=== PATIENT | male | born 1950 | race Caucasian/White ===

== ENCOUNTER 2017-06-09 14:50 | Observation (INO) ==
--- NOTE | 2017-06-09 15:11 | Emergency Department Report ---
Chest Pain HPI - General Chief Complaint: Chest Pain Stated Complaint: cp Time Seen by Provider: 06/09/17 15:11 Source: patient - History of Present Illness HPI narrative: 66 YO M presents to ED with report of sternal chest pain that radiated to his left arm that started approx. 30 minutes ago. Patient says he was at his 's shop sitting when chest pain started. EMS was called and gave patient four 81mg ASA, which took his pain from 12/17 to 05/19. Pain was crushing and constant. Says that pain is different than his usual angina. Admits that he was diaphoretic and SOA with chest pain today. Denies fever, chills, sinus drainage, cough, nausea, vomiting, abdominal pain, headache or ataxia. Has had past IL and has seen Dr. Hopper. - Related Data Home Medications Medication Instructions Recorded Confirmed Aspirin [ASA] 325 mg PO DAILY 06/09/17 06/09/17 FLUoxetine [Prozac] 20 mg PO DAILY 06/09/17 06/09/17 Fluticasone/Salmeterol 250/50 1 puff INH BID PRN 06/09/17 06/09/17 [Advair 250-50 Diskus] Lansoprazole 30 mg PO DAILY 06/09/17 06/09/17 Lisinopril [Zestril] 20 mg PO DAILY 06/09/17 06/09/17 Previous Rx's Medication Instructions Recorded Albuterol Neb (0.5%) [Proventil 1 vial AEROSOL Q4HR #60 vial 02/09/16 Neb (0.5%)] Allergies Allergy/AdvReac Type Severity Reaction Status Date / Time No Known Allergies Allergy Unknown Verified 06/09/17 18:14 Review of Systems All systems: reviewed and negative except as stated Cardiovascular: Reports: as per HPI, chest pain Respiratory: Reports: as per HPI, dyspnea PFSH Patient Stated Medical History Cerebrovascular Accident Yes: 2015; RIGHT SIDED FACIAL DROOP Angina Yes Cardiac Arrhythmia Yes: AFIB HX Congestive Heart Failure No Hypertension Yes Myocardial Infarction Yes Peripheral Vascular Disease No Asthma Yes Diabetes Mellitus Type 1 No Diabetes Mellitus Type 2 No Gastroesophageal Reflux Yes Disease Hx Kidney Stones Yes Osteoarthritis Yes Depression Yes Recreational Drug Use No Surgical History: Eye. Nose. Colonoscopy - Social History Household members: spouse Current occupational status: employed Physical Exam - Limitations Limitations: no limitations - General General appearance: alert, in no apparent distress - Normal Exams: Head:: Normocephalic without trauma Eyes:: No scleral icterus, irritation ENMT:: No facial trauma, nasal exudates Neck:: Full range of motion Chest/Respirations:: Clear all cooney, with good airflow, and symmetry bilaterally Cardiovascular:: Regular rate and rhythm, without murmur or gallop Abdomen:: Bowel sounds positive, soft, non-tender, non-distended, no hepatosplenomegaly Musculoskeletal:: No tenderness, or deformity noted, good range of motion, all extremities Neurological:: Patient is alert, and oriented, cranial nerves, motor/sensory/ cerebellar, exams w/o gross deficits, to observation - Eye Eye exam: Present: EOMI - ENT ENT exam: Present: mucous membranes moist - Neck Neck exam: Present: trachea midline - Chest Chest inspection: Present: symmetric chest wall rise - Skin Skin exam: Present: warm, dry Course - Consultations Consultation #1: I discussed patient's HPI, PMH, labs, VS, exam findings, CXR, EKG and treatment in the ED with Dr. Cochran. Dr. Cochran will admit observation, surgical. Vital Signs Temperature 98.1 F 06/09/17 14:50 Pulse Rate 76 06/09/17 14:50 Respiratory Rate 16 06/09/17 14:50 Blood Pressure 154/80 H 06/09/17 14:50 Pulse Oximetry 95 06/09/17 14:50 Temperature 97.6 F 06/09/17 17:42 Pulse Rate 64 06/09/17 17:42 Respiratory Rate 16 06/09/17 18:50 Blood Pressure 136/71 06/09/17 17:42 Pulse Oximetry 99 06/09/17 18:50 Chest Pain - [facility] Narrative Medical decision making narrative: Patient reports no pain after 1 nitro. Labs are unremarkable Troponin < 0.012 D-dimer <150 EKG does not indicate any acute findings CXR no acute cardiopulmonary findings I discussed labs, EKG and CXR results with patient and need for admission to r/ o IL. Patient agrees to observation admission. - Differential Diagnosis Likely: stable angina, unstable angina pectoris, atypical chest pain, chest pain (IL) - Medical Records Data Attestation: I reviewed the patient's medical records. - Lab Data Attestation: I reviewed the patient's lab results. Result diagrams: 06/09/17 15:00 06/09/17 15:00 Lab Results 06/09/17 06/09/17 06/09/17 Range/Units 15:00 15:00 15:00 WBC 8.9 (4.5-11.0) T/MM3 RBC 5.07 (4.50-5.90) M/MM3 Hgb 14.8 (13.5-17.5) GM/DL Hct 44.0 (41-53) % MCV 86.8 (80-100) UM3 MCH 29.2 (26-34) UUG MCHC 33.6 (31-37) GM/DL RDW Std Deviation 40.9 (36.9-50.2) FL Plt Count 253 (130-400) T/MM3 MPV 11.7 (9.4-12.4) UM3 Immature Gran % (Auto) 0.3 (0.0-0.5) % Neut % (Auto) 61.6 (33-66) % Lymph % (Auto) 26.5 (23-45) % Russell % (Auto) 8.4 (0-9.0) % Eos % (Auto) 2.9 (0-4) % Baso % (Auto) 0.3 (0-2) % Neut # (Auto) 5.5 (1.8-7.7) T/MM3 Lymph # (Auto) 2.4 (1-4.8) T/MM3 Russell # (Auto) 0.7 (0-0.8) T/MM3 Eos # (Auto) 0.3 (0-0.5) T/MM3 Baso # (Auto) 0.0 (0-0.2) T/MM3 Abs Immat Gran (auto) 0.03 (0.00-0.03) T/MM3 D-Dimer < 150 (0-230) NG/ML Turbidity < 20 (0-20) Sodium 145 H (134-144) MEQ/L Potassium 4.1 (3.6-5) MEQ/L Chloride 108 H (98-107) MEQ/L Carbon Dioxide 23 (22-30) MEQ/L Anion Gap 14 (5-15) MEQ/L BUN 23.0 H (9-20) MG/DL Creatinine 1.0 (0.8-1.5) MG/DL GFR Calculation 75 BUN/Creatinine Ratio 23 (6-26) RATIO Glucose 109 (75-110) MG/DL Calculated Osmolality 284 H (261-280) MOSM/KG Calcium 9.5 (8.4-10.2) MG/DL Total Bilirubin 0.30 (0.20-1.30) MG/DL Icterus Index < 2 (0-7) AST 18 (17-59) U/L ALT 27 (21-72) U/L Alkaline Phosphatase 57 (38-126) U/L Troponin I < 0.012 (0-0.12) ng/ml B-Natriuretic Peptide 107 (0-175) pg/mL Total Protein 7.6 (6.3-8.2) G/DL Albumin 4.6 (3.5-5.0) G/DL Globulin 3.0 (2.4-3.6) G/DL Albumin/Globulin Ratio 1.5 (1.1-2.2) RATIO Specimen Hemolysis < 15 (0-25) - Radiology Data Attestation: I reviewed the patient's radiology results. IMPRESSION: No acute cardiopulmonary abnormality. . - EKG Data EKG #1 EKG attestation: Yes: I reviewed and interpreted this EKG. EKG results narrative: SR, no STEMI EKG shows normal: sinus rhythm Disposition Clinical Impression: Chest pain, rule out acute myocardial infarction Disposition: To [facility] [place] Condition: Stable - Seen By: midlevel
--- OUTSIDE RECORDS SUMMARY | 2017-06-09 15:16 | External Medical Summary | Referral Summary ---
:1950 Author Organization [facility] Address [address] [place] [address] Care Team Providers Name Role Phone Lowell Fishman II Primary Care Physician Encounter VC Date(s): 02/26/15 - 02/26/15 [facility] [address] [place] [address] [phone] Discharge Diagnosis: Acute diverticulitis Discharge Disposition: 01-Home or Self Care Attending Physician: Charlie Beltran MD Admitting Physician: Charlie Beltrna MD Vital Signs Most recent to oldest [Reference Range]: 1 Temperature Oral [35.8-37.3 degC] 36.7 degC (02/26/15 12:36 PM) Peripheral Pulse Rate [60-100 bpm] 77 bpm (02/26/15 12:36 PM) Heart Rate Monitored [60-100 bpm] 60 bpm (02/26/15 3:28 PM) Respiratory Rate [14-20 br/min] 15 br/min (02/26/15 12:36 PM) Blood Pressure [90-140/60-90 mmHg] 134/90 mmHg (02/26/15 3:28 PM) SpO2 98 % (02/26/15 3:28 PM) Problem List No data available for this section Allergies, Adverse Reactions, Alerts No Known Allergies Medications Cipro 500 mg oral tablet 500 mg 1 tabs, Oral, q12hr, X 10 days, # 20 tabs, 0 Refill(s) Start Date: 02/26/15 Stop Date: 03/08/15 Status: OrderedFlagyl 500 mg oral tablet 500 mg 1 tabs, Oral, q12hr, X 10 days, # 20 tabs, 0 Refill(s) Start Date: 02/26/15 Stop Date: 03/08/15 Status: OrderedNorco 7.5 mg-325 mg oral tablet 1 tabs, Oral, q4hr, as needed for pain, # 16 tabs, 0 Refill(s) Start Date: 02/26/15 Stop Date: 03/02/15 Status: Orderedpromethazine 25 mg oral tablet 25 mg 1 tabs, Oral, q6hr, # 20 tabs, 0 Refill(s) Start Date: 02/26/15 Stop Date: 03/06/15 Status: Ordered Results Hematology Most recent to oldest [Reference Range]: 1 WBC [4.8-10.8 10*3/uL] 9.6 10*3/uL (02/26/15 12:49 PM) RBC [4.60-6.20] 5.48 (02/26/15 12:49 PM) Hgb [14.0-18.0 gm/dL] 16.1 gm/dL (02/26/15 12:49 PM) Hct [42.0-52.0 %] 47.1 % (02/26/15 12:49 PM) MCV [82.0-99.0 fL] 85.9 fL (02/26/15 12:49 PM) MCH [27.0-32.0 pg] 29.4 pg (02/26/15 12:49 PM) MCHC [32.0-36.0 gm/dL] 34.2 gm/dL (02/26/15 12:49 PM) RDW [11.5-14.5 %] 13.8 % (02/26/15 12:49 PM) Platelet [150-400 10*3/uL] 248 10*3/uL (02/26/15 12:49 PM) MPV [9.4-12.3 fL] 11.3 fL (02/26/15 12:49 PM) Immature Granulocytes [0.0-1.0 %] 0.2 % (02/26/15 12:49 PM) Neutrophils [51-75 %] 63 % (02/26/15 12:49 PM) Lymphocytes [20-46 %] 24 % (02/26/15 12:49 PM) Monocytes [4-11 %] 9 % (02/26/15 12:49 PM) Eosinophils [0-4 %] 3 % (02/26/15 12:49 PM) Basophils [0-2 %] 0 % (02/26/15 12:49 PM) Neutro Absolute [1.90-7.00 10*3] 5.97 10*3 (02/26/15 12:49 PM) Lymph Absolute [0.80-3.30 10*3] 2.32 10*3 (02/26/15 12:49 PM) Pleasants Absolute [0.30-1.00 10*3] 0.90 10*3 (02/26/15 12:49 PM) Eos Absolute [0.00-0.50 10*3] 0.33 10*3 (02/26/15 12:49 PM) Baso Absolute [0.00-0.20 10*3] 0.03 10*3 (02/26/15 12:49 PM) Nucleated RBC Automated [0 /100 WBC] 0.0 /100 WBC (02/26/15 12:49 PM) Chemistry Most recent to oldest [Reference Range]: 1 Sodium Lvl [136-144 mEq/L] 135 mEq/L *LOW* (02/26/15 12:49 PM) Potassium Lvl [3.6-5.1 mEq/L] 4.7 mEq/L 1 (02/26/15 12:49 PM) Chloride [99-109 mEq/L] 101 mEq/L (02/26/15 12:49 PM) CO2 [22-32 mEq/L] 24 mEq/L (02/26/15 12:49 PM) AGAP [3-20] 10 (02/26/15 12:49 PM) BUN [4-20 mg/dL] 8 mg/dL (02/26/15 12:49 PM) Glucose Lvl [70-100 mg/dL] 91 mg/dL (02/26/15 12:49 PM) Creatinine Lvl [0.64-1.27 mg/dL] 1.04 mg/dL (02/26/15 12:49 PM) eGFR [>60] >60 2 (02/26/15 12:49 PM) Calcium Lvl [8.6-10.0 mg/dL] 9.2 mg/dL (02/26/15 12:49 PM) Albumin Lvl [3.5-4.8 gm/dL] 4.2 gm/dL (02/26/15 12:49 PM) Total Protein [6.1-7.9 gm/dL] 8.0 gm/dL *HI* (02/26/15 12:49 PM) Globulin [1.9-4.3 gm/dL] 3.8 gm/dL (02/26/15 12:49 PM) ALT [17-63 U/L] 19 U/L (02/26/15 12:49 PM) AST [15-41 U/L] 22 U/L (02/26/15 12:49 PM) Alk Phos [26-104 U/L] 60 U/L (02/26/15 12:49 PM) Bili Total [0.2-1.2 mg/dL] 1.3 mg/dL 3 *HI* (02/26/15 12:49 PM) Lipase Lvl [8-48 U/L] 28 U/L (02/26/15 12:49 PM) 1Result Comment: Hemolyzed specimen. The following tests may be affected: ALT, AST, Potassium, and Total Bilirubin.2Result Comment: Multiply eGFR results by 1.21 for race.3Result Comment: Naproxen, specifically the metabolite O-desmethylnaproxen, may cause spurious elevation in Total Bilirubin levels.Urinalysis Most recent to oldest [Reference Range]: 1 UA Color Lt Yellow (02/26/15 1:02 PM) UA Appear Clear (02/26/15 1:02 PM) UA pH [5.0-8.0] 7.0 (02/26/15 1:02 PM) UA Leuk Est [Negative] Negative (02/26/15 1:02 PM) UA Nitrite [Negative] Negative (02/26/15 1:02 PM) UA Protein [Negative] Negative (02/26/15 1:02 PM) UA Glucose [Negative] Negative (02/26/15 1:02 PM) UA Ketones [Negative] Negative (02/26/15 1:02 PM) UA Urobilinogen [<1.0] Negative (02/26/15 1:02 PM) UA Bili [Negative] Negative (02/26/15 1:02 PM) UA Blood [Negative] Negative (02/26/15 1:02 PM) UA Spec Grav [1.003-1.030] 1.006 (02/26/15 1:02 PM) Type Clean Catch (02/26/15 1:02 PM) Immunizations No data available for this section Procedures No data available for this section Social History Social History Type Response Smoking Status Never smoker; Type: Oral; Type: chew daily Assessment and Plan No data available for this section
--- OUTSIDE RECORDS SUMMARY | 2017-06-09 15:16 | External Medical Summary | Continuity of Care Document ---
:1950 Author Organization [facility] Allergies Active Description Code Type Severity Reaction Onset Reported/ Identified Relationship Clinical to Patient Status Yes No Known No Drug Unknown N/A 08/28/2014 Allergies Known Aller Aller gy gies Yes No Known NKMA N/A N/A 02/26/2015 Allergies Medications There is no data. Problems Date Dx Attending Type Code Diagnosis Diagnosed By Coded 03/06/2015 Charlie Beltran MD Final K57.92 Diverticulitis of S intestine, part unspecified, without perforation or absce 03/06/2015 Charlie Beltran MD Reason R10.32 Left lower quadrant S pain Procedures Code Description Performed By Performed On [facility] Miguel De La Vega MD 08/28/2014 VITRECTOMY NEC P 14.79 VITREOUS Miguel De La Vega MD 08/28/2014 OPERATION NEC P 14.9 OTHER POST Miguel De La Vega MD 08/28/2014 SEGMENT OPS P Results Test Result Range HEMOGLOBIN - 08/28/14 07:29 MEAN CELL VOLUME 85.0 fl 80.0-100.0 HEMOGLOBIN 14.1 gm/dL 14.0-18.0 METABOLIC PANEL, BASIC - 08/28/14 07:29 POTASSIUM 4.1 mmol/L 3.5-5.3 EST GFR (MDRD) > 60 mL/min > 59 ANION GAP 9 mmol/L 5-15 EST CrCl (CG) > 60 mL/min > 59 GLUCOSE 108 mg/dL 70-99 CALCIUM 8.7 mg/dL 8.5-10.1 BLOOD UREA NITROGEN 20 mg/dL 7-20 CREATININE 1.1 mg/dL 0.8-1.3 SODIUM 140 mmol/L 135-148 CHLORIDE 104 mmol/L 98-110 CARBON DIOXIDE 27 mmol/L - Encounters ACCT No. Visit Discharge Status Pt. Type Provider Facility Loc./Unit Complaint Date/Time [id number] 08/28/2014 08/28/2014 DIS Outpatien Ceferino GhoshOPRA 405 06:55:00 17:35:00 kristian CHAVARRIA, [facility] [id number] 02/26/2015 02/26/2015 DIS Emergency Devin CHAVARRIA, [facility] ED Fever 102 12:32:00 15:29:00 [facility] on [place]
--- OUTSIDE RECORDS SUMMARY | 2017-06-09 15:16 | External Medical Summary | Referral Summary ---
:1950 Author Organization [facility] Address [address] [place] [address] Care Team Providers Name Role Phone Lowell iFshman II Primary Care Physician Encounter [facility] [id number] Date(s): 02/26/15 - 02/26/15 [facility] [address] [place] [address] Discharge Diagnosis: Acute diverticulitis Final: Diverticulitis of intestine, part unspecified, without perforation or abscess without bleeding Discharge Disposition: 01-Home or Self Care Attending Physician: Charlie Beltran MD Admitting Physician: Charlie Beltran MD Vital Signs Most recent to oldest [...] Adverse Reactions, Alerts No Known Allergies Medications No data available for this section Results Hematology Most recent to oldest [Reference [...] [0.80-3.30 10*3] 2.32 10*3 (02/26/15 12:49 PM) Cameron Absolute [0.30-1.00 10*3] 0.90 10*3 (02/26/15 12:49 [...]
[2017-06-09] MEDS ORDERED: SALINE FLUSH 10ml SYRINGE IVF PRN (15:19)
[2017-06-09] MEDS ORDERED: NITROGLYCERIN 0.4 MG SUBLINGUAL TABLET SL PRN (15:19)
--- NOTE | 2017-06-09 16:14 | XRay Report ---
Indication: chest pain PROCEDURE: XR chest 1V: Encounter: Initial Comparison: July 30, 2010 FINDINGS: The lungs are clear. There is no abnormal airspace opacity, pleural effusion or pneumothorax identified. The heart size, pulmonary vasculature and mediastinum are within normal limits. No significant skeletal abnormality is seen. IMPRESSION: No acute cardiopulmonary abnormality. .
[2017-06-09] MEDS ORDERED: ONDANSETRON 4 MG/2 ML INJECTION IVP PRN (17:38)
[2017-06-09] MEDS ORDERED: BISACODYL 10 MG SUPPOSITORY RECTALLY PRN (17:38)
[2017-06-09] MEDS ORDERED: MORPHINE SULFATE 2mg INJECTION IVP PRN (17:38)
[2017-06-09] MEDS ORDERED: ACETAMINOPHEN 325 MG TABLET PO PRN (17:38)
[2017-06-09 17:45] VITALS: BMI 25.1
--- NOTE | 2017-06-09 18:07 | History & Physical Report ---
History of Present Illness Date: 06/09/17 Chief complaint: chest pain, R/O acute MT HPI: Navid Dan is a pleasant 66-year-old male patient of Dr. Fishman who presented to [facility] today, 06/09/17, for evaluation of acute chest pain. He reports that today, while sitting in a chair in his 's shop playing a game on his phone, he started to have severe 8/10, crushing central chest pain with difficulty breathing, diaphoresis and left arm numbness. He states the pain lasted several minutes. He denies any dizziness, lightheadedness, headache, abdominal pain, nausea or vomiting. He has a significant history for hypertension and CAD and admits to prior MT at the age of 40 as well as prior CVA in 2010 with residual mild right sided facial droop and memory impairment. EMS was contacted and he was given ASA 325mg and and brought to [facility] for further evaluation. While in the ED, he was given nitro x 1 with improvement of his chest pain from 8/10 to 1/10. Labs were obtained and revealed slight hypernatremia with sodium of 145. Troponin was negative at <0.012. D-dimer was negative at <150 and BNP was 107. CXR revealed no acute cardiopulmonary abnormality and EKG revealed sinus rhythm at a rate of 77. Due to his significant past medical history of CAD and hypertension as well as previous MT and CVA, Dr. Cochran was consulted and he was admitted into observation status for further evaluation and close cardiac monitoring. Review of Systems All systems PM: 10-point ROS was reviewed, no additional remarkable complaints except - Constitutional Constitutional: Absent: chills, fatigue, fever(s), headache(s), weakness - EENMT Eyes: Absent: blurry vision, diplopia, loss of vision, photophobia Ears: Absent: ear pain Balance: Absent: falling to one side Nose: Absent: nosebleeds Mouth/Throat: Absent: sore throat, changes in swallowing, dry mouth EENMT Comments: occasionally chokes on food. - Cardiovascular Cardiovascular: Present: chest pain. Absent: palpitations, syncope, dyspnea on exertion, orthopnea, edema, heart murmur Rhythm: Present: regular rhythm Vascular: Absent: pallor of an extermity, pedal edema - Respiratory Respiratory: Absent: cough, dyspnea, dyspnea on exertion, wheezing, pain on inspiration, chest congestion Respiratory Comments: difficulty breathing with chest pain - since resolved. - Gastrointestinal Gastrointestinal: Absent: abdominal pain, change in bowel habits, constipation, diarrhea, hematemesis, hematochezia, melena, nausea, vomiting - Genitourinary Genitourinary: Absent: dysuria, flank pain, hematuria - Musculoskeletal Musculoskeletal: Absent: abnormal gait, back pain, deformity, muscle cramps, muscle weakness - Integumentary/Breasts Integumentary: Absent: rash - Neurological Neurological: Present: memory loss (chronic). Absent: confusion, convulsions, dizziness, focal weakness, headache(s), radicular pain, weakness - Psychiatric Psychiatric: Present: depression. Absent: behavioral changes - Endocrine Endocrine: Absent: flushing, palpitations, polydipsia, polyphagia - Hematologic/Lymphatic Hematologic/Lymphatic: Absent: easy bruising - Allergic/Immunologic Allergic/Immunologic: Absent: seasonal rhinorrhea Past Medical History Hypertension. CAD. History of MT - age 40. 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 GERD. Hiatal hernia. BPH. Allergic rhinitis. Depression. CHF. Osteoarthritis. History of tachyarrhythmia. Asthma. Surgical History: Colonoscopy - 2016. Nose and eye surgery. Cataract removal. Family History Updates: Father - tachyarrhythmia. Grandfather - diabetes. Brother - , cirrhosis of the liver secondary to alcohol abuse. - Social History Smoking status: Never smoker Substance use type: marijuana (recently used while staying in [place] for 6 months.) Alcohol intake frequency: does not drink Housing: house Household members: spouse Current occupational status: employed Does patient use chewing tobacco?: Yes (1/4 can daily) Current residence: Apartment/Private Home Social history: PCP - Dr. Fishman. Cardio - Dr. Hopper. Medications Home Medications Medication Instructions Recorded Confirmed Type Aspirin [ASA] 325 mg PO DAILY 06/09/17 06/09/17 History FLUoxetine [Prozac] 20 mg PO DAILY 06/09/17 06/09/17 History Fluticasone/Salmeterol 250/50 1 puff INH BID PRN 06/09/17 06/09/17 History [Advair 250-50 Diskus] Lansoprazole 30 mg PO DAILY 06/09/17 06/09/17 History Lisinopril [Zestril] 20 mg PO DAILY 06/09/17 06/09/17 History Allergies Allergy/AdvReac Type Severity Reaction Status Date / Time No Known Allergies Allergy Unknown Verified 06/09/17 18:14 Exam Vital Signs: Temperature 97.6 F 06/09/17 17:42 Pulse Rate 64 06/09/17 17:42 Respiratory Rate 16 06/09/17 17:42 Blood Pressure 136/71 06/09/17 17:42 Pulse Oximetry 97 06/09/17 17:42 Telemetry Rhythm: Sinus Rhythm Height/Weight/BMI: Height 6 ft Weight 185 lb 3.013 oz Body Mass Index 25.1 Comments: Patient resting in bed in room 118 with nursing at bedside. Denies current chest pain. - Constitutional Present: no acute distress, well nourished, well developed, cooperative - Routine HEENT Exam Head: Present: normocephalic, atraumatic Eye: Present: PERRL. Absent: conjunctival icterus ENT: Present: mucous membranes moist, oropharynx clear - Routine Neck Exam Present: supple, full ROM, trachea midline - Routine Chest/Breast/Axilla Exam Chest wall: Absent: tenderness - Routine Respiratory Exam Present: CTA bilaterally. Absent: accessory muscle use, dyspnea, rales, respiratory distress, rhonchi, stridor, wheezes, crackles - Routine Cardiovascular Exam Present: RRR, S1, S2 - Routine Abdominal Exam Present: soft, normoactive bowel sounds, non distended, non tender. Absent: distended, rebound - Routine Extremities Exam Present: no edema, non tender, full ROM, pulses intact - Routine Back/Spine/Pelvis Exam Back/Spine: Present: full ROM. Absent: vertebral tenderness - Routine Skin Exam Present: intact, dry, warm. Absent: jaundice Comments: afebrile - Routine Neurological Exam Present: alert, oriented X3, moving all extremities, hearing grossly intact, facial asymmetry (slight right sided facial droop), normal speech - Routine Psychiatric Exam Present: normal affect, cooperative Results - Labs CBC & Chem 7: 06/09/17 15:00 06/09/17 15:00 - Imaging and Cardiology Chest x-ray Status: image reviewed by me Additional comments: Date of Exam: 06/09/17 Type of Exam(s): XR chest 1V Reason for Exam(s): chest pain FINDINGS: The lungs are clear. There is no abnormal airspace opacity, pleural effusion or pneumothorax identified. The heart size, pulmonary vasculature and mediastinum are within normal limits. No significant skeletal abnormality is seen. IMPRESSION: No acute cardiopulmonary abnormality. Assessment and Plan (1) Chest pain, rule out acute myocardial infarction Current visit: Yes Status: Acute Assessment and Plan: Assessment Acute chest pain with history of CAD and prior MT. Hypertension. 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 GERD. Asthma. Hiatal hernia. BPH. Allergic rhinitis. Depression. CHF. Osteoarthritis. History of tachyarrhythmia. Plan - 06/09/17 (Admission) Acute chest pain with history of CAD and prior MT. - Patient given nitro x 1 and ASA 325mg prior to admission with resolution of chest pain. EKG showed no acute ST elevation or changes. - Admit to observation status under the care of Dr. Cochran. Patient has previously seen Dr. Hopper. - Monitor cardiac function closely on telemetry. - Nitro as needed for chest pain as well as morphine. Continue daily ASA. - Troponin in ED was <0.012 (negative). Will monitor serial troponins. - CXR showed no acute cardiopulmonary abnormalities. - 1/2 NS at 75cc/hr for gentle hydration. Cardiac diet. - Recheck labs in AM to monitor blood counts, electrolytes and renal function. - Patient may take home medications. - SCDs for DVT prophylaxis. Hypertension. - Continue home lisinopril. Monitor blood pressures closely. 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 - Patient admits to occasional choking. Monitor closely for signs of aspiration. Consider speech therapy evaluation given history of CVA. GERD and Hiatal hernia. - Continue home Prilosec. Asthma. - Continue home Advair. Depression. - Continue home Prozac. CHF. - Monitor closely for signs of fluid overload. Monitor daily weight and respiratory function. Osteoarthritis. - Tylenol as needed. History of tachyarrhythmia. - Monitor closely on telemetry. DVT Prophylaxis: SCD's GI Prophylaxis: other (Prilosec) Resuscitation Status: Full Code - Time spent with patient Time with patient PN: 70 minutes - Physician Narrative Physician: Ross Cochran MD Narrative: Date: 06/09/17 Time: 2000 Have independently interviewed and examined pt. Chart reviewed. Case discussed with ED provider and my PA. Care plan developed with my supervision; agree with above. Developed chest pain earlier-retrosternal. Severe. Occurred at rest. Breathing has been stable-no increase SOA, cough/congestion. Denies acid reflux or odynophagia/dysphagia. EMS activated. Given ASA (did take ASA this am). Pain resolved post NTG in ED. EKG without changes. Initial troponin neg. Placed in OBS to R/O MT. Lungs: clear bilaterally. No distress CV: regular AB: soft nt/nd MSE: awake alert Plan: OBS. Tele. Serial enzymes. 1/2NS at 75cc/hr to normalize sodium. SCD for DVT prevention. Continue home medications. Hospital Course Summary Disclaimer: The visit summary below is not to be considered part of the above Progress Note. Hospital Course: Plan - 06/09/17 (Admission) Acute chest pain with history of CAD and prior MT. - Patient given nitro x 1 and ASA 325mg prior to admission with resolution of chest pain. EKG showed no acute ST elevation or changes. - Admit to observation status under the care of Dr. Cochran. Patient has previously seen Dr. Hopper. - Monitor cardiac function closely on telemetry. - Nitro as needed for chest pain as well as morphine. Continue daily ASA. - Troponin in ED was <0.012 (negative). Will monitor serial troponins. - CXR showed no acute cardiopulmonary abnormalities. - 1/2 NS at 75cc/hr for gentle hydration. Cardiac diet. - Recheck labs in AM to monitor blood counts, electrolytes and renal function. - Patient may take home medications. - SCDs for DVT prophylaxis. Hypertension. - Continue home lisinopril. Monitor blood pressures closely. 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 - Patient admits to occasional choking. Monitor closely for signs of aspiration. Consider speech therapy evaluation given history of CVA. GERD and Hiatal hernia. - Continue home Prilosec. Asthma. - Continue home Advair. Depression. - Continue home Prozac. CHF. - Monitor closely for signs of fluid overload. Monitor daily weight and respiratory function. Osteoarthritis. - Tylenol as needed. History of tachyarrhythmia. - Monitor closely on telemetry.
[2017-06-09] MEDS: 1/2 NS 1,000 ML IV SCH (18:39)
[2017-06-09] MEDS: ALBUTEROL 2.5mg/0.5ml (0.5%) NEB AEROSOL SCH (18:50)
[2017-06-09] MEDS ORDERED: ALBUTEROL 2.5mg/0.5ml (0.5%) NEB AEROSOL PRN (19:00)
[2017-06-09] MEDS ORDERED: ALBUTEROL 2.5mg/0.5ml (0.5%) NEB AEROSOL SCH (20:00)
[2017-06-10] MEDS ORDERED: LANSOPRAZOLE 30 MG PO SCH (06:30)
[2017-06-10 07:49] VITALS: BP 131/72; TEMP 97.5
[2017-06-10 08:08] VITALS: PULSE 60
[2017-06-10] MEDS: ALBUTEROL 2.5mg/0.5ml (0.5%) NEB AEROSOL SCH (08:30)
[2017-06-10] MEDS: 1/2 NS 1,000 ML IV SCH (08:36)
[2017-06-10 08:42] VITALS: RESP 20; O2SAT 97
[2017-06-10] MEDS ORDERED: --POM--LISINOPRIL 20 MG TABLET PO SCH (09:00)
[2017-06-10] MEDS ORDERED: --POM--ASPIRIN 325 MG TABLET PO SCH (09:00)
[2017-06-10] MEDS ORDERED: FLUOXETINE 20 MG PO SCH (09:00)
--- NOTE | 2017-06-10 10:40 | Discharge Summary ---
Discharge Information Date of admission: 06/09/17 17:17 Attending Physician: Evangelist aFtima IV, MD Primary care physician: Lowell Fishman II, MD - Discharge Diagnosis (1) Chest pain, rule out acute myocardial infarction Status: Acute Acute chest pain with history of CAD and prior KS. Hypertension. 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 GERD. Asthma. Hiatal hernia. BPH. Allergic rhinitis. Depression. CHF. Osteoarthritis. History of tachyarrhythmia. - Laboratory Labs: 06/10/17 04:12 06/10/17 04:12 Laboratory Tests 06/09/17 06/09/17 06/10/17 15:00 21:33 04:12 Troponin I < 0.012 < 0.012 < 0.012 - Radiology Radiology: Date of Exam: 06/09/17 Indication: chest pain PROCEDURE: XR chest 1V: FINDINGS: The lungs are clear. There is no abnormal airspace opacity, pleural effusion or pneumothorax identified. The heart size, pulmonary vasculature and mediastinum are within normal limits. No significant skeletal abnormality is seen. IMPRESSION: No acute cardiopulmonary abnormality. History of Present Illness HPI: Navid Dan is a pleasant 66-year-old male patient of Dr. Fishman who presented to [facility] today, 06/09/17, for evaluation of acute chest pain. He reports that today, while sitting in a chair in his 's shop playing a game on his phone, he started to have severe 8/10, crushing central chest pain with difficulty breathing, diaphoresis and left arm numbness. He states the pain lasted several minutes. He denies any dizziness, lightheadedness, headache, abdominal pain, nausea or vomiting. He has a significant history for hypertension and CAD and admits to prior KS at the age of 40 as well as prior CVA in 2010 with residual mild right sided facial droop and memory impairment. EMS was contacted and he was given ASA 325mg and and brought to [facility] for further evaluation. While in the ED, he was given nitro x 1 with improvement of his chest pain from 8/10 to 1/10. Labs were obtained and revealed slight hypernatremia with sodium of 145. Troponin was negative at <0.012. D-dimer was negative at <150 and BNP was 107. CXR revealed no acute cardiopulmonary abnormality and EKG revealed sinus rhythm at a rate of 77. Due to his significant past medical history of CAD and hypertension as well as previous KS and CVA, Dr. Cochran was consulted and he was admitted into observation status for further evaluation and close cardiac monitoring. Objective Vital signs: Temperature 97.5 F 06/10/17 07:47 Pulse Rate 60 06/10/17 08:07 Respiratory Rate 20 06/10/17 08:30 Blood Pressure 131/72 06/10/17 07:47 Pulse Oximetry 97 06/10/17 08:30 Height/Weight/BMI: Height 1.83 m Weight 84.5 kg Body Mass Index 25.1 - Constitutional Present: no acute distress, well nourished, well developed - Routine HEENT Exam Head: Present: normocephalic, atraumatic Comments: R ptosis - Routine Respiratory Exam Present: CTA bilaterally. Absent: wheezes - Routine Cardiovascular Exam Present: RRR, no murmur - Routine Abdominal Exam Present: soft, non distended, non tender - Routine Extremities Exam Present: no edema, normal capillary refill - Routine Skin Exam Present: dry, warm - Routine Neurological Exam Present: alert, oriented X3 - Routine Lymphatic Exam Lymphatic: Absent: adenopathy - Routine Psychiatric Exam Present: normal affect, cooperative Hospital Course This is a general summary of the patient's hospital course. For more details refer to the complete medical record. Hospital course: 06/09/17 (Admission) Acute chest pain with history of CAD and prior KS. - Patient given nitro x 1 and ASA 325mg prior to admission with resolution of chest pain. EKG showed no acute ST elevation or changes. - Admit to observation status under the care of Dr. Cochran. Patient has previously seen Dr. Hopper. - Monitor cardiac function closely on telemetry. - Nitro as needed for chest pain as well as morphine. Continue daily ASA. - Troponin in ED was <0.012 (negative). Will monitor serial troponins. - CXR showed no acute cardiopulmonary abnormalities. - 1/2 NS at 75cc/hr for gentle hydration. Cardiac diet. - Recheck labs in AM to monitor blood counts, electrolytes and renal function. - Patient may take home medications. - SCDs for DVT prophylaxis. Hypertension. - Continue home lisinopril. Monitor blood pressures closely. 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 - Patient admits to occasional choking. Monitor closely for signs of aspiration. Consider speech therapy evaluation given history of CVA. GERD and Hiatal hernia. - Continue home Prilosec. Asthma. - Continue home Advair. Depression. - Continue home Prozac. CHF. - Monitor closely for signs of fluid overload. Monitor daily weight and respiratory function. Osteoarthritis. - Tylenol as needed. History of tachyarrhythmia. - Monitor closely on telemetry. 06/10/17 Patient had no further CP beyond presentation in the ER. Troponins were neg and telemetry revealed NSR throughout his stay. He'll be d/c'd with nitro to use PRN and will f-u with Dr. Hopper. Time spent with patient: greater than 35 minutes Resuscitation Status: Full Code Discharge Plan - Discharge Disposition Discharge Date: 06/10/17 Disposition: Discharged Home, Self-Care *Condition: Stable Reason For Visit (Visit label in EMR): Chest pain - R/O KS - Discharge Medications *Discharge Medications: New Nitroglycerin [Nitrostat] 0.4 mg SL [id number] PRN #12 tab PRN Reason: Chest Pain Atorvastatin [Lipitor] 1 tab PO HS #30 tab Continue FLUoxetine [Prozac] 20 mg PO DAILY Aspirin [ASA] 325 mg PO DAILY Lansoprazole 30 mg PO DAILY Lisinopril [Zestril] 20 mg PO DAILY Fluticasone/Salmeterol 250/50 [Advair 250-50 Diskus] 1 puff INH BID PRN PRN Reason: Shortness Of Air/Wheezing Albuterol Neb (0.5%) [Proventil Neb (0.5%)] 1 vial AEROSOL Q4HR #60 vial - Discharge Packet/Instructions *Diet: Heart healthy diet *Activity: As tolerated. *Pain Management/Treatment: n/a *Wound Care: n/a Additional Instructions: Dr Hopper wants to start you on Lipitor for prevention of stroke/heart attack. THis prescription was sent to your pharmacy. A prescription for nitro was also sent to the pharmacy. *Expected Signs/Symptoms: n/a *Notify Physician if: you chest pain recurs or you have difficulty breathing. *During Business Hours Contact: Dr. Fishman's office *After Business Hours Contact: Dr. Fishman's office and follow after hours instructions *Pending Lab/Results: No Pending Lab - Referrals/Follow Up *Referrals/Follow Up: Jennifer Hopper MD [Physician] - (Appt in his office Jun 17 at 930am. His office will call you to schedule an appointment for stress test next week to be done at [facility]. ) - Patient Handouts Patient Handouts: Angina (GEN), Chest Pain (DC) - Dismissal Complete Discharge Instructions are:: Complete Physician Narrative - Narrative Physician: Evangelist Fatima MD Attestation Narrative: Date: 06/10/17 Time: 1524 I have independently evaluated and examined this patient. I reviewed the chart, the patient's history, and the ADVERTISING AGENT/PA's documented findings as above. We discussed and formulated the assessment and plan as above with additions as below: Patient doing well. No chest pain, soa, nausea while admitted. Willing to f/u with Dr. Hopper. NAD. CTAB. RRR. s/nt/nd +bs. no edema Ruled out for NSTEMI. Has h/o CAD and will f/u with Dr. Hopper. Rx for nitro given.
== END 2017-06-10 14:10 | disposition home or self-care (01) ==
LOC: ED 14:50 → SRG 14:50 → SUATTDRO 17:17 → SRG 17:33
PROVIDERS: ADMIT Hospitalist; ATTEND Hospitalist